=== PATIENT | male | born 1980 | race Caucasian/White ===

== ENCOUNTER 2022-07-24 12:13 | Emergency (ER) | payer OTHER, SELFPAY ==
[2022-07-24 12:40] VITALS: BP 123/78; PULSE 98; RESP 16; TEMP 36.2; O2SAT 98
--- NOTE | 2022-07-24 13:18 | ED.GENADULT ---
HPI - General Adult General Chief complaint: Upper Respiratory Infection Stated complaint: sore throat Source: patient Mode of arrival: ambulatory Limitations: no limitations History of Present Illness HPI narrative: Patient presents for evaluation of sick symptoms since 1700 yesterday. Symptoms include productive cough and sore throat. No fever, chills, nausea, vomiting, diarrhea. No underlying medical problems. He smokes marijuana. No history of COVID. His son is here being evaluated for similar symptoms. He is not taking any medication to assist with his symptoms. No additional complaints or concerns. Related Data Home Medications Medication Instructions Recorded Confirmed Fish Oil 07/24/22 Allergies Allergy/AdvReac Type Severity Reaction Status Date / Time No Known Allergies Allergy Verified 07/24/22 12:48 Review of Systems Review of Systems: CONSTITUTIONAL: Denies fever, chills, or sweats. EYES: Denies visual changes, redness, or discharge. ENT: Reports sore throat. Denies rhinorrhea, congestion, or otalgia. CARDIOVASCULAR: Denies chest pain, palpitations, or edema. RESPIRATORY: Reports cough. Denies shortness of breath. GASTROINTESTINAL: Denies abdominal pain, nausea, vomiting, or diarrhea. GENITOURINARY: Denies dysuria or hematuria. SKIN: Denies rash or itching. MUSCULOSKELETAL: Denies back pain, joint pain, or myalgia. NEUROLOGIC: Denies headache, numbness, dizziness, or weakness. PSYCHIATRIC: Denies anxiety or depression. PMFSH Past Medical History Medical History (Updated 07/24/22 @ 13:49 by Leoncio Chavez, [employer], ) No pertinent past medical history Surgical History Surgical History No pertinent past surgical history Family History Family History Mother Family history non-contributory Social History Social History Substance use: current Substance use type: marijuana Living arrangements: with family Gender identity (if verbalized by the patient): Male Sexual Orientation (if Verbalized by the Patient): Straight or Heterosexual Spiritual care concerns: No Exam Narrative: GENERAL: Well-appearing, well-nourished, and in no acute distress. HEAD: Normocephalic, atraumatic. EYES: PERRLA and EOMI. ENT: Nares clear, no rhinorrhea or epistaxis. Mucous membranes moist. Posterior pharyngeal erythema without exudate. Uvula is midline. Bilateral TMs pearly browne nonbulging NECK: Supple. No adenopathy or masses. No carotid bruits or JVD CHEST: Clear to auscultation. No respiratory distress. No wheezes rales or rhonchi HEART: Regular rate and rhythm. No murmur heard. Normal peripheral pulses. ABDOMEN: Soft, nontender, nondistended, normal active bowel sounds. EXTREMITIES: Normal range of motion. No edema. SKIN: Warm, dry, no rash. NEURO: No focal deficits. Alert and oriented x3. PSYCH: Normal mood and affect. Course Course Emergency Course: THIS IS A 42-YEAR-OLD MALE PRESENTED FOR EVALUATION OF SICK SYMPTOMS. COVID, INFLUENZA, STREP WERE ALL NEGATIVE. LIKELY VIRAL IN ORIGIN HIS SON'S TESTING WAS ALL NEGATIVE WELL. INCREASE HYDRATION. [id number] [employer] FOR SYMPTOM MANAGEMENT. FOLLOW UP WITH PRIMARY PROVIDER. GO TO THE ER FOR WORSENING SYMPTOMS. PATIENT IN AGREEMENT PLAN OF CARE. Level of Care: Express Care Visit Vital Signs Vital signs: Vital Signs Temperature 36.2 C L 07/24/22 12:40 Pulse Rate 98 07/24/22 12:40 Respiratory Rate 16 07/24/22 12:40 Blood Pressure 123/78 07/24/22 12:40 Pulse Oximetry 98 07/24/22 12:40 Oxygen Delivery Room Air 07/24/22 12:40 Temperature 36.2 C L 07/24/22 12:40 Pulse Rate 98 07/24/22 12:40 Respiratory Rate 16 07/24/22 12:40 Blood Pressure 123/78 07/24/22 12:40 Pulse Oximetry 98 07/24/22 12:40 Oxygen De
== END 2022-07-24 14:01 | disposition home or self-care (01) ==
PROVIDERS: Emergency Provider Nurse Practitioner
DX: J02.8 Acute pharyngitis due to other specified organisms (principal); Z20.822 Contact with and (suspected) exposure to COVID-19
CPT/HCPCS: 87081; 87426; 87804; 87880; 99203; C9803; G0463